=== PATIENT | male | born 1945 | race Caucasian/White ===

== ENCOUNTER → 2016-06-01 | Outpatient (CLI) | payer BC ==
[~2016-06-01] MED LIST: ASPCH81X PO; HYDR25TA4 PO; LISI-725 PO; METFTAB2 PO; METO25TA3 PO
[2016-06-01 17:05] LABS: BLOOD UREA NITROGEN 14 mg/dl (7-18); BUN/CREATININE RATIO 13.9 (10-20); CALCIUM 9.1 mg/dl (8.5-10.1); CARBON DIOXIDE 32 mmol/L (21-32); CHLORIDE 102 mmol/L (98-107); GLUCOSE 121 mg/dl (70-99); POTASSIUM 3.6 mmol/L (3.5-5.1); SODIUM 143 mmol/L (136-145)
== END | disposition home or self-care (01) ==
LOC: C.LABBC 13:28
PROVIDERS: ATTEND Internal Medicine Interventional Cardiology
DX: I10 Essential (primary) hypertension (principal)

== ENCOUNTER 2016-09-03 13:14 | Inpatient (IN) | payer BC, OTHER ==
[~2016-09-03] VITALS: Ht 182.9 cm; Wt 98.0 kg
[2016-09-03] MEDS ORDERED: SODIUM CHLORIDE 0.9% 1000ML 1,000 ML IV STA (14:30)
[2016-09-03 14:40] LABS: BASO % 0.1 %; BASO ABS # 0.01 K/uL (0-0.2); COMPLETE YES; EOS % 2.4 %; IG% 0.1 %; LYMPH % 19.4 %; LYMPH ABS # 1.47 K/uL (1.2-3.4); MEAN CELL VOLUME 81.7 fL (80-100); MEAN CORPUSCULAR HEMOGLOBIN 28.6 pg (25-34); MEAN PLATELET VOLUME 9.2 fL (7.4-10.4); MONO % 7.7 %; NEUT % 70.3 %; PLATELET COUNT 201 K/uL (130-400); RED BLOOD COUNT 5.14 M/uL (4.7-6.1); WHITE BLOOD COUNT 7.58 K/uL (4.8-10.8)
--- NOTE | 2016-09-03 14:49 | DIAGNOSTIC IMAGING REPORT ---
CHEST ONE VIEW PORTABLE CLINICAL HISTORY: HYPOTENSION dyspnea COMPARISON STUDY: 11/12/2011 FINDINGS: Prior median sternotomy. Diaphragms smooth. Lungs are clear. IMPRESSION: No acute process. Electronically signed by: Kameron Michelle M.D. 09/03/2016 2:46 PM Dictated Date/Time: 09/03/2016 2:46 PM
[2016-09-03 14:59] LABS: ALT/SGPT 16 U/L (12-78); AST/SGOT 13 U/L (15-37); BLOOD UREA NITROGEN 14 mg/dl (7-18); BUN/CREATININE RATIO 8.7 (10-20); CALCIUM 8.4 mg/dl (8.5-10.1); CARBON DIOXIDE 31 mmol/L (21-32); CHLORIDE 104 mmol/L (98-107); GLUCOSE 116 mg/dl (70-99); POTASSIUM 3.8 mmol/L (3.5-5.1); SODIUM 141 mmol/L (136-145)
--- NOTE | 2016-09-03 15:01 | EMERGENCY ROOM VISIT NOTE ---
ED Visit Note First contact with patient: 14:07 I did evaluate and examine this patient myself. I did guide management for the patient. I agree with the PA's assessment as discussed. Please see the PAs dictation for further details. I did independently review the 12-lead EKG, chest x-ray and blood work. The patient is presenting with an episode of hypotension at home. He has orthostatic hypotension here. He denies any pain anywhere. He states he has had no chest discomfort or shortness of breath. He is feeling better at this time. His creatinine is 1.6. He was given IV fluids.
[2016-09-03 15:09] LABS: ALB/GLOB RATIO 1.2 (0.9-2); ALKALINE PHOSPHATASE 60 U/L (45-117); CKMB/CK RATIO 0.7 (0-3.0)
--- NOTE | 2016-09-03 16:21 | EMERGENCY ROOM VISIT NOTE ---
History First contact with patient: 14:07 Chief Complaint: HYPOTENSION Stated Complaint: LOW BLOOD PRESSURE, NAUSEA, FAINTNESS History of Present Illness Patient is a 71-year-old white male with past medical history significant for metabolic syndrome and coronary artery disease states status post CABG 1 who presents emergency department for evaluation of an episode of hypotension earlier today. Patient relates that over the last couple of days he has felt fatigued and had some intermittent dizzy spells that were not particularly worrisome to him. He thought that he might be getting sick. He states that he felt well this morning, had a normal breakfast and took his normal morning medications including Glucophage, carvedilol and lisinopril. About 2 hours prior to coming to the emergency Department patient states he was standing at his work bench when he began to feel weak, dizzy, sweaty and felt like he could not stand. He was able to get himself up to his bedroom where he laid down. He checked his blood pressure and it was noted to be 66/47. He did not check his blood sugar. He states that his symptoms lasted him about 20 minutes. He called his doctor and was referred to the emergency department. He denies that he lost consciousness. There was no associated chest pain, palpitations or shortness of breath. No headache, facial droop, slurring of speech or focal extremity weakness. He was able to get himself out of the house and into the car without difficulty. He still feels "spacey." He denies any changes in his medications recently. No abdominal pain, nausea, vomiting, diarrhea, melena or hematochezia. No urinary symptoms. He has never had symptoms similar to this previously. Review of Systems Review of systems as per HPI. All other systems reviewed were negative. 10 systems reviewed. Past Medical/Surgical History Medical Problems: (1) Coronary Atherosclerosis Of [place] Coronary Vessel (2) Dysmetabolic Syndrome X (3) Hyperlipidemia, Unspecified (4) Hypertension Nos Surgical Problems: (1) Aortocoronary Bypass Electronic medical records are reviewed and summarized as above/below. See Problem List. Social History Smoking Status: Former Smoker Marital Status: Housing Status: lives with significant other Occupation Status: retired Current/Historical Medications Scheduled Aspirin (Aspirin Chewable), 81 MG PO DAILY Hydrochlorothiazide (Hctz), 1 TAB PO DAILY Lisinopril (Zestril), 20 MG PO DAILY Metformin Ext Rel (Glucophage Ext Rel), 750 MG PO BIDM Allergies Coded Allergies: Penicillin G (Verified Allergy, Mild, RASH, 09/03/16) Sulfa Antibiotics (Verified Allergy, Unknown, GI SYMPTOMS, 09/03/16) Physical Exam Vital Signs Date Time Temp Pulse Resp B/P Pulse Ox O2 Delivery O2 Flow Rate FiO2 09/03/16 18:10 52 18 125/70 99 Room Air 09/03/16 16:14 52 16 134/97 99 Room Air 09/03/16 15:17 65 18 117/65 98 Room Air 09/03/16 13:49 54 09/03/16 13:44 60 112/54 65 108/58 72 102/59 09/03/16 13:29 36.2 66 18 96/61 98 Room Air Physical Exam CONSTITUTIONAL: Patient is a well-appearing 71-year-old white male who is awake and alert and in no acute distress. Blood pressure in triage 96/61. Heart rate during examination was in the mid to low 50s, and on subsequent reevaluation was noted to be in the upper 40s. EYES: Pupils equal, round, reactive to light and accommodation. EOMs intact without nystagmus. Sclera are anicteric. ENT: Tympanic membranes intact, with normal landmarks. External canals are clear. Oral and nasopharynx are clear. Mucous membranes are moist, no lesions , tongue and gums appear normal. NECK: No bruits auscultated. Supple without lymphadenopathy. No thyromegaly. No meningeal signs. Full active range of motion without discomfort. CARDIOVASCULAR: Well-healed sternotomy scar. Regular rate and rhythm. No carotid bruits auscultated. No JVD. Peripheral pulses easy to palpable. RESPIRATORY: Breath sounds equal and clear to auscultation without wheezes, rales, or rhonchi heard. Full and equal chest expansion without accessory muscle use or retractions. GI: Bowel sounds are present. Abdomen is soft, nontender, nondistended. No organomegaly. No pulsatile masses. No guarding or rebound. MUSCULOSKELETAL: Full range of motion of extremities x 4 with good strength. No cyanosis, edema, joint tenderness or swelling. No deformity. INTEGUMENTARY: No lesions or rash, normal skin turgor. NEUROLOGICAL: Alert, oriented, and cooperative. Cranial nerves, sensation and strength grossly intact. Pupils round, equal, and react to light, EOMs are full. LYMPH: No lymphadenopathy. Medical Decision & Procedures ER Provider Diagnostic Interpretation: CHEST ONE VIEW PORTABLE CLINICAL HISTORY: HYPOTENSION dyspnea COMPARISON STUDY: 11/12/2011 FINDINGS: Prior median sternotomy. Diaphragms smooth. Lungs are clear. IMPRESSION: No acute process. Laboratory Results 09/03/16 13:00 Red Blood Count 5.14, Mean Corpuscular Volume 81.7, Mean Corpuscular Hemoglobin 28.6, Mean Corpuscular Hemoglobin Concent 35.0, Mean Platelet Volume 9.2, Neutrophils (%) (Auto) 70.3, Lymphocytes (%) (Auto) 19.4, Monocytes (%) (Auto) 7.7, Eosinophils (%) (Auto) 2.4, Basophils (%) (Auto) 0.1, Neutrophils # (Auto) 5.33, Lymphocytes # (Auto) 1.47, Monocytes # (Auto) 0.58, Eosinophils # (Auto) 0.18, Basophils # (Auto) 0.01 09/03/16 13:00 Test 09/03/16 13:00 White Blood Count 7.58 K/uL (4.8-10.8) Red Blood Count 5.14 M/uL (4.7-6.1) Hemoglobin 14.7 g/dL (14.0-18.0) Hematocrit 42.0 % (42-52) Mean Corpuscular Volume 81.7 fL (80-100) Mean Corpuscular Hemoglobin 28.6 pg (25-34) Mean Corpuscular Hemoglobin Concent 35.0 g/dl (32-36) Platelet Count 201 K/uL (130-400) Mean Platelet Volume 9.2 fL (7.4-10.4) Neutrophils (%) (Auto) 70.3 % Lymphocytes (%) (Auto) 19.4 % Monocytes (%) (Auto) 7.7 % Eosinophils (%) (Auto) 2.4 % Basophils (%) (Auto) 0.1 % Neutrophils # (Auto) 5.33 K/uL (1.4-6.5) Lymphocytes # (Auto) 1.47 K/uL (1.2-3.4) Monocytes # (Auto) 0.58 K/uL (0.11-0.59) Eosinophils # (Auto) 0.18 K/uL (0-0.5) Basophils # (Auto) 0.01 K/uL (0-0.2) RDW Standard Deviation 38.1 fL (36.4-46.3) RDW Coefficient of Variation 12.7 % (11.5-14.5) Immature Granulocyte % (Auto) 0.1 % Immature Granulocyte # (Auto) 0.01 K/uL (0.00-0.02) Anion Gap 6.0 mmol/L (3-11) Est Creatinine Clear Calc Drug Dose 53.0 ml/min Estimated GFR () 50.2 Estimated GFR (Non- 43.3 BUN/Creatinine Ratio 8.7 (10-20) Calcium Level 8.4 mg/dl (8.5-10.1) Total Bilirubin 0.8 mg/dl (0.2-1) Aspartate Amino Transf (AST/SGOT) 13 U/L (15-37) Alanine Aminotransferase (ALT/SGPT) 16 U/L (12-78) Alkaline Phosphatase 60 U/L (45-117) Total Creatine Kinase 133 U/L (39-308) Creatine Kinase MB 0.9 ng/ml (0.5-3.6) Creatine Kinase MB Ratio 0.7 (0-3.0) Troponin I < 0.015 ng/ml (0-0.045) Total Protein 7.0 gm/dl (6.4-8.2) Albumin 3.8 gm/dl (3.4-5.0) Globulin 3.2 gm/dl (2.5-4.0) Albumin/Globulin Ratio 1.2 (0.9-2) Thyroid Stimulating Hormone (TSH) 2.460 uIu/ml (0.300-4.500) Medications Administered Medications (Trade) Dose Ordered Sig/Mona Route Start Time Stop Time Status Last Admin Dose Admin Sodium Chloride (Nss 1000ml) 1,000 ml @ 999 mls/hr Q1H1M STAT IV 09/03/16 14:30 09/03/16 15:30 DC 09/03/16 14:30 999 MLS/HR ECG Indication: weakness Rate (beats per minute): 55 Rhythm: sinus bradycardia Findings: no acute ischemic change, no ectopy Change: Sinus bradycardia has replaced normal sinus rhythm ED Course The patient was seen and assessed as above. His old records were reviewed. IV access was obtained and he was hydrated with a liter bolus of normal saline solution. He was also given oral fluids. Orthostatic vital signs were not indicative of orthostasis and the patient was not symptomatic with position changes. EKG was performed and was as noted above. Chest x-ray was obtained and was unremarkable. Laboratory studies were performed including CBC with differential, CMP, TSH and cardiac enzymes. Patient's white count was not elevated. He was not anemic. There were no gross electrolyte imbalances which required correction. Creatinine slightly elevated at 1.6, which does appear to be an increase from his baseline. Liver functions are not elevated. Cardiac enzymes are negative 1. TSH is indicative of a euthyroid state. The patient was reassessed frequently. He did report that he felt better with the IV fluids, but he was noted to be persistently bradycardic with heart rate in the 50s, occasionally was noted at 49 beats per minute. It is unclear whether this is a significant deviation from his baseline. Blood pressure remains stable. All laboratory and diagnostic imaging studies were reviewed with the patient and his as well as attending physician, who also independently evaluated the patient. Given his cardiac history, it was felt that he would benefit from further care and evaluation in the hospital. Patient was discussed with the [facility] service for further care and management. Differential includes acute coronary syndrome, arrhythmia, seizure disorder, medication side effect, TIA/CVA, orthostasis, dehydration, electrolyte abnormalities, anemia, hypoglycemia, among others.. Medical Decision See ED course. Impression Primary Impression: Hypotension Additional Impression: Bradycardia Departure Information Referrals Andrea Pereira D.O.Int.Med. (PCP) Patient Instructions [facility] Problem Qualifiers
[2016-09-03] MEDS ORDERED: ACETAMINOPHEN 325 MG TAB PO PRN (18:30)
[2016-09-03] MEDS ORDERED: ZOLPIDEM TARTRATE 5 MG TAB PO PRN (18:30)
[2016-09-03] MEDS ORDERED: GLUCOSE 10 TABS/TUBE PO PRN (18:45)
[2016-09-03] MEDS ORDERED: DEXTROSE 50% 50 ML SYR IV PRN (18:45)
[2016-09-03] MEDS ORDERED: GLUCAGON FOR INJ 1 MG VIAL SQ PRN (18:45)
[2016-09-03] MEDS ORDERED: ONDANSETRON INJ 2 MG/ML 2 ML VIAL IV PRN (18:45)
[2016-09-03] MEDS ORDERED: GLUCOSE 40% GEL 15 GM TUBE PO PRN (18:45)
[2016-09-03 19:00] VITALS: Ht 182.9 cm; Wt 98.0 kg
[2016-09-03 19:54] VITALS: BP 139/59; PULSE 57; TEMP 36.3; O2SAT 97
[2016-09-03] MEDS: INSULIN ASPART 100 UNITS/ML 3 ML PEN SC SCH (20:20)
[2016-09-03] MEDS: NSS + 20MEQ KCL 1000ML 1,000 ML IV SCH (20:20)
--- NOTE | 2016-09-03 20:50 | History and Physical ---
History & Physical Date & Time of Service: Sep 03, 2016 at 20:49 Chief Complaint: Bradycardia, Hypotension Primary Care Physician: Andrea Pereira D.O.Int.Med. History of Present Illness Source: patient The patient is a 71-year-old white male who reports a few days of fatigue and intermittent dizzy spells, and then developed hypotension today, which prompted a visit to the emergency department. He breakfast this morning, and while standing at his work then she began to feel weak, dizzy and sweaty like he was going to pass out. He was able to get to his bedroom, where he checked his blood pressure and found to be 66/47. He called his doctor at this time, and was advised to go to the emergency department. He did not have any associated chest pain, palpitations or shortness of breath. He denies any change in his usual activity pattern. Upon arrival in emergency department he reports he still felt a bit spacey, but this improved during the time he was there, in particular after getting IV fluids. Past Medical/Surgical History Medical Problems: (1) Coronary Atherosclerosis Of [place] Coronary Vessel Status: Chronic (2) Dysmetabolic Syndrome X Status: Chronic (3) Hyperlipidemia, Unspecified Status: Chronic (4) Hypertension Nos Status: Chronic Surgical Problems: (1) Aortocoronary Bypass Status: Chronic Social History Smoking Status: Former Smoker Smokeless Tobacco Use: No Alcohol Use: none Drug Use: none Marital Status: Housing status: lives with family Occupational Status: retired Multi-Drug Resistant Organisms History of MDRO: No Allergies Coded Allergies: Penicillin G (Verified Allergy, Mild, RASH, 09/03/16) Sulfa Antibiotics (Verified Allergy, Unknown, GI SYMPTOMS, 09/03/16) Home Medications Scheduled Aspirin (Aspirin Chewable), 81 MG PO DAILY Hydrochlorothiazide (Hctz), 1 TAB PO DAILY Lisinopril (Zestril), 20 MG PO DAILY Metformin Ext Rel (Glucophage Ext Rel), 750 MG PO BIDM Review of Systems The patient denies chest pain, palpitations, shortness of breath, cough, lower extremity swelling, vision change, hearing change, sore throat, fevers, chills, sweats, weight change, nausea, vomiting, abdominal pain, pelvic pain, blood in urine or stool, dysuria, urinary frequency or urgency, headache, memory loss, rash, abnormal bruising or bleeding, imbalance, focal weakness, arthralgias or myalgias, back or neck pain, night sweats, or allergy symptoms. The review of systems is otherwise negative other than for that already noted above, and at least 10 systems have been reviewed. Physical Exam Vital Signs Date Time Temp Pulse Resp B/P Pulse Ox O2 Delivery O2 Flow Rate FiO2 09/03/16 19:54 36.3 57 139/59 97 Room Air 09/03/16 18:10 52 18 125/70 99 Room Air 09/03/16 16:14 52 16 134/97 99 Room Air 09/03/16 15:17 65 18 117/65 98 Room Air 09/03/16 13:49 54 09/03/16 13:44 60 112/54 65 108/58 72 102/59 09/03/16 13:29 36.2 66 18 96/61 98 Room Air The patient is awake, well-developed and adequately nourished, alert and oriented 3, normocephalic and atraumatic, lying in bed and in no acute distress. HEENT--PERRL, EOMI, mucous membranes and oropharynx dry. Neck--supple, no JVD or bruits, thyroid normal, trachea midline, no adenopathy. Heart--bradycardic, no murmurs, rubs or gallops. Lungs--clear bilaterally with good air movement, no respiratory distress, no accessory muscle use. Abdomen--normal bowel sounds and soft, nontender and nondistended, no hernias or masses, no organomegaly. Extremities--no cyanosis, clubbing or edema. There are good distal pulses b/l. Dermatologic--normal skin turgor, normal color, warm and dry, no abnormal lymph nodes, no rash. Neurologic--cranial nerves II through XII grossly intact, motor and sensory examination normal. Rheumatologic--normal range of motion, nontender, muscles and joints. Psychiatric--normal affect. Diagnostics Laboratory Results Results Past 24 Hours Test 09/03/16 13:00 09/03/16 20:14 Range/Units White Blood Count 7.58 4.8-10.8 K/uL Red Blood Count 5.14 4.7-6.1 M/uL Hemoglobin 14.7 14.0-18.0 g/dL Hematocrit 42.0 42-52 % Mean Corpuscular Volume 81.7 80-100 fL Mean Corpuscular Hemoglobin 28.6 25-34 pg Mean Corpuscular Hemoglobin Concent 35.0 32-36 g/dl Platelet Count 201 130-400 K/uL Mean Platelet Volume 9.2 7.4-10.4 fL Neutrophils (%) (Auto) 70.3 % Lymphocytes (%) (Auto) 19.4 % Monocytes (%) (Auto) 7.7 % Eosinophils (%) (Auto) 2.4 % Basophils (%) (Auto) 0.1 % Neutrophils # (Auto) 5.33 1.4-6.5 K/uL Lymphocytes # (Auto) 1.47 1.2-3.4 K/uL Monocytes # (Auto) 0.58 0.11-0.59 K/uL Eosinophils # (Auto) 0.18 0-0.5 K/uL Basophils # (Auto) 0.01 0-0.2 K/uL RDW Standard Deviation 38.1 36.4-46.3 fL RDW Coefficient of Variation 12.7 11.5-14.5 % Immature Granulocyte % (Auto) 0.1 % Immature Granulocyte # (Auto) 0.01 0.00-0.02 K/uL Sodium Level 141 136-145 mmol/L Potassium Level 3.8 3.5-5.1 mmol/L Chloride Level 104 98-107 mmol/L Carbon Dioxide Level 31 21-32 mmol/L Anion Gap 6.0 3-11 mmol/L Blood Urea Nitrogen 14 7-18 mg/dl Creatinine 1.60 0.60-1.40 mg/dl Est Creatinine Clear Calc Drug Dose 53.0 ml/min Estimated GFR () 50.2 Estimated GFR (Non- 43.3 BUN/Creatinine Ratio 8.7 10-20 Random Glucose 116 70-99 mg/dl Calcium Level 8.4 8.5-10.1 mg/dl Total Bilirubin 0.8 0.2-1 mg/dl Aspartate Amino Transf (AST/SGOT) 13 15-37 U/L Alanine Aminotransferase (ALT/SGPT) 16 12-78 U/L Alkaline Phosphatase 60 45-117 U/L Total Creatine Kinase 133 39-308 U/L Creatine Kinase MB 0.9 0.5-3.6 ng/ml Creatine Kinase MB Ratio 0.7 0-3.0 Troponin I < 0.015 0-0.045 ng/ml Total Protein 7.0 6.4-8.2 gm/dl Albumin 3.8 3.4-5.0 gm/dl Globulin 3.2 2.5-4.0 gm/dl Albumin/Globulin Ratio 1.2 0.9-2 Thyroid Stimulating Hormone (TSH) 2.460 0.300-4.500 uIu/ml Bedside Glucose 105 70-99 mg/dl Diagnostic Radiology Patient Name: ROBERT MEI Unit Number: [id number] Dictated: 09/03/[id number] Transcribed: 09/03/16 144 MS Printed Date/Time: [~ rep prt dt]/[~ rep prt tm] [~ rep ct labl] - [~ rep ct ivnm] [facility] [place] [address] Dictated: 09/03/[id number] Transcribed: 09/03/16 1446 MS Printed Date/Time: [~ rep prt dt]/[~ rep prt tm] [~ rep ct labl] - [~ rep ct ivnm] CHEST ONE VIEW PORTABLE CLINICAL HISTORY: HYPOTENSION dyspnea COMPARISON STUDY: 11/12/2011 FINDINGS: Prior median sternotomy. Diaphragms smooth. Lungs are clear. IMPRESSION: No acute process. Electronically signed by: Kameron Michelle M.D. 09/03/2016 2:46 PM Dictated Date/Time: 09/03/2016 2:46 PM The status of this report is Signed. Draft = Not yet reviewed or approved by Radiologist. Signed = Reviewed and approved by Radiologist. <AttendingPhy></AttendingPhy> <FamilyPhy>Andrea Pereira D.O.Int.Med.</ FamilyPhy> <PrimaryPhy>Andrea Pereira D.O.Int.Med.</PrimaryPhy> <UnitNumber> [id number]</UnitNumber> <VisitNumber>[id number]</VisitNumber> <PatientName> ROBERT MEI</PatientName> <DateOfBirth>1945</DateOfBirth> <Location>[facility]< /Location> <ServiceDate>09/03/16</ServiceDate> <MNE>ESINDI</MNE> <OrderingPhy> Shelly Mathews</OrderingPhy> <OrderingPhyMNE>f rep ord dr iglesias</ OrderingPhyMNE> <DictatingPhyMNE>f rep dict dr iglesias</DictatingPhyMNE> <CCListMNE> f rep ct mne</CCListMNE> <AdmittingPhyMNE>f pt admit dr iglesias</AdmittingPhyMNE> < AttendingPhyMNE>f pt attend dr iglesias</AttendingPhyMNE> <ConsultingPhyMNE>f pt consult dr iglesias</ConsultingPhyMNE> <FamilyPhyMNE>f pt fam dr iglesias</FamilyPhyMNE> <OtherPhyMNE>f pt other dr iglesias</OtherPhyMNE> < PrimaryPhyMNE>f pt prim care dr iglesias</PrimaryPhyMNE> <ReferringPhyMNE>f pt referring dr iglesias</ReferringPhyMNE> EKG EKG shows sinus bradycardia at 55 bpm, 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 Impression Assessment and Plan Near syncope/hypotension with dehydration/bradycardia/CAD/status post CABG/ hypertension history--the patient will be admitted to the telemetry unit for serial cardiac enzymes, cardiac rhythm monitoring and a 2-D echo cardiac exam with Dopplers. He appeared to have significant improvement of hypotension symptoms once he received IV fluids, however, he persisted to have an abnormally low heart rate in the mid 50s, about 10 bpm lower than average upon record review. We'll continue aspirin chewable 81 mg by mouth daily, lisinopril 20 mg by mouth daily, and hold HCTZ 25 mg by mouth daily. If his heart rate continues to be abnormally low, could consider a cardiology consult. The patient however, did deny any further symptoms once rehydrated, despite his heart rate being in the mid 50s. Metabolic syndrome--hold metformin extended release 750 mg by mouth twice a day with meals, and placement Accu-Cheks before meals and at bedtime with NovoLog coverage. Level of Care Telemetry Advanced Directives Existing Advance Directive: No Existing Living Will: No Existing Power of Precise Winder: No Resuscitation Status FULL RESUSCITATION VTE Prophylaxis VTE Risk Assessment Done? Y/N: Yes Risk Level: Moderate Given or contraindicated: SCD's Social Service Consult None Apply
[2016-09-04] VITALS (10 sets, daily range): BP systolic 107–188; BP diastolic 68–82; PULSE 52–77; TEMP 36.4–36.7; O2SAT 94–97
[2016-09-04 02:44] LABS: CKMB/CK RATIO 0.9 (0-3.0)
[2016-09-04] MEDS: NSS + 20MEQ KCL 1000ML 1,000 ML IV SCH (05:24)
[2016-09-04 06:04] LABS: BASO % 0.3 %; BASO ABS # 0.02 K/uL (0-0.2); COMPLETE YES; EOS % 2.7 %; HEMATOCRIT 37.4 % (42-52); IG% 0.2 %; LYMPH % 26.4 %; LYMPH ABS # 1.64 K/uL (1.2-3.4); MEAN CORPUSCULAR HEMOGLOBIN 28.9 pg (25-34); MEAN CORPUSCULAR HGB CONC 35.3 g/dl (32-36); NEUT % 61.4 %; PLATELET COUNT 148 K/uL (130-400); RED BLOOD COUNT 4.56 M/uL (4.7-6.1); WHITE BLOOD COUNT 6.21 K/uL (4.8-10.8)
[2016-09-04 06:30] LABS: BUN/CREATININE RATIO 10.4 (10-20); CALCIUM 8.1 mg/dl (8.5-10.1); CREATININE 1.1 mg/dl (0.60-1.40); MAGNESIUM 2.4 mg/dl (1.8-2.4); POTASSIUM 3.5 mmol/L (3.5-5.1)
[2016-09-04] MEDS: INSULIN ASPART 100 UNITS/ML 3 ML PEN SC SCH ×2 (08:32→11:42)
[2016-09-04] MEDS ORDERED: ASPIRIN 81 MG ECTAB PO SCH (09:00)
[2016-09-04] MEDS ORDERED: LISINOPRIL 20 MG TAB PO SCH (09:00)
[2016-09-04] MEDS ORDERED: PERFLUTREN LIPID MICROSPHERE (DEFINITY) IV ONE (09:48)
[2016-09-04 10:59] LABS: CKMB/CK RATIO 0.9 (0-3.0)
--- NOTE | 2016-09-04 13:03 | Discharge Instructions ---
Discharge Instructions Date of Service Sep 04, 2016. Admission Reason for Admission: Bradycardia, Hypotension Discharge Discharge Diagnosis / Problem: Near syncope/hypotension with dehydration, acute kidney failure resolved Discharge Goals Goal(s): Decrease discomfort, Improve function, Increase independence, Improve disease control, Improve nutritional status, Learn about illness, Diagnostic testing, Therapeutic intervention, Prevent Disease Progression, Specific goals Activity Recommendations Activity Limitations: resume your previous activity (fall precaution) . Instructions / Follow-Up Instructions / Follow-Up You have Near syncope/hypotension with dehydration, likely from decreased oral intake and on HCTZ diuretic It is resolved, but I recommend you continue plenty oral fluid intake, hold hydrochlorothiazide for now until seen by family doctor I would like you to check blood pressure 2 times a day and bring the number to your PCP in the follow-up visit Call to your family doctor if your systolic blood pressure more than 180, You have echocardiogram examination done you need to follow-up with primary care physician all your cardiology for the final results You have decreased heart rate which we called bradycardia, you need to report to PCP or call 911 if you feeling any dizziness or palpitation You have acute kidney failure resolved You need to follow up with slicing machine operator/tender Dr. Collins about bradycardia, outpatient Holter monitor if needed You have Metabolic syndrome, metformin was hold when you in the hospital , will recommend continue to hold until seen by PCP in 3-5 days because of acute kidney failure recent - you need to follow up with your primary care physician in 3-5 days, you should call to get appointment - - you need to follow up with your subspecialist in 2-3 week, is to call to get appointment - take medication as instructed, never overdose or any misuse, or take with alcohol, because misuse of medicine may cause organ damage or , call your primary care physician if have questions of medicaitons. - call your primary care physician OR go to local emergency room if has any fever/chill, chest pain, shortness of breathing, nausea/vomiting/abdominal pain , facial droop/slurry speech/local weakness, or if has any questions. - fall precaution - diet as instructed - you should understand that it is important to follow up the above instruction , and "not following the above instruction" may cause delayed or missed care of your medical conditions which may cause permanent organ damage and even . Current Hospital Diet Patient's current hospital diet: Diabetes Type 2 Diet, AHA Diet (Heart Healthy) , Vegetarian Diet Discharge Diet Recommended Diet: AHA Diet (Heart Healthy) Pending Studies Studies pending at discharge: no Medical Emergencies . Who to Call and When: Medical Emergencies: If at any time you feel your situation is an emergency, please call 911 immediately. . Non-Emergent Contact Non-Emergency issues call your: Primary Care Provider, [employer] . . "Provider Documentation" section prepared by Manpreet Mcfarland. VTE Core Measure Inpt VTE Proph given/why not?: SCD's
--- NOTE | 2016-09-04 13:05 | Discharge Summary ---
Discharge Summary Date of Service Sep 04, 2016. Discharge Summary Admission Date: Sep 03, 2016 at 18:30 Discharge Date: Sep 04, 2016 Discharge Disposition: Home Principal Diagnosis: Near syncope/hypotension with dehydration, likely from decreased oral intak Problems/Secondary Diagnoses: Acute kidney failure resolved Bradycardia asymptomatic (1) Aortocoronary Bypass Status: Chronic (2) Coronary Atherosclerosis Of [place] Coronary Vessel Status: Chronic (3) Dysmetabolic Syndrome X Status: Chronic (4) Hyperlipidemia, Unspecified Status: Chronic (5) Hypertension Nos Status: Chronic Procedures: Echo was done, no formal report yet Consultations: No Medication Reconciliation Continued Medications: Aspirin (Aspirin Chewable) 81 Mg Chew 81 MG PO DAILY Lisinopril (Zestril) 20 Mg Tab 20 MG PO DAILY, TAB Discontinued Medications: Hydrochlorothiazide (Hctz) 25 Mg Tab 1 TAB PO DAILY for 30 Days, #30 TAB 5 Refills Metformin Ext Rel (Glucophage Ext Rel) 750 Mg Tab 750 MG PO BIDM, TAB Discharge Exam Feeling great, out of bed to the rest room, no dizziness Review of Systems: Constitutional: No chills, No fatigue, No fever, No problem reported, No sweats, No weakness, No weight loss Eyes: No diplopia, No discharge, No eye pain, No problem reported, No redness, No worsening of vision ENT: No dental problems, No hearing loss, No nasal symptoms, No problem reported, No sore throat, No tinnitus, No trouble swallowing, No unusual epistaxis Respiratory: No cough, No dyspnea at rest, No dyspnea on exertion, No hemoptysis, No problem reported, No shortness of breath, No sputum, No wheezing Cardiovascular: No PND, No chest pain, No claudication, No edema, No orthopnea, No palpitations, No problem reported Abdomen: No GI bleeding, No constipation, No diarrhea, No nausea, No pain, No problem reported, No vomiting Musculoskeletal: No calf pain, No joint pain, No muscle pain, No problem reported, No swelling Genitourinary - Male: No dysuria, No hematuria, No impotence, No lesions, No penile discharge, No problem reported, No urinary frequency, No urinary hesitancy, No urinary incontinence, No urinary retention, No urinary urgency Psychiatric: No anhedonism, No anxiety, No depression symptoms, No insomnia , No problem reported, No substance abuse Endocrine: No excessive thirst, No excessive urination, No fatigue, No problem reported Hematologic / Lymphatic: No abnormal bleeding/bruising, No clotting problems , No night sweats, No problem reported, No swollen lymph nodes Integumentary: No bleeding, No color change, No itch, No new/changing skin lesions, No problem reported, No rash Physical Exam: General Appearance: WD/WN, no apparent distress Eyes: normal inspection, PERRL, EOMI ENT: normal ENT inspection, hearing grossly normal, pharynx normal Neck: supple, no adenopathy, thyroid normal Respiratory/Chest: chest non-tender, + decreased breath sounds Cardiovascular: regular rate, rhythm, no edema, no gallop, no JVD Abdomen / GI: normal bowel sounds, non tender, soft, no organomegaly, no pulsatile mass, normal rectal exam, occult blood negative Extremities: normal inspection, no calf tenderness, normal capillary refill , no pedal edema, normal range of motion Neurologic/Psychiatric: end frazer II-XII nml as tested, no motor/sensory deficits , alert, normal mood/affect, normal reflexes Skin: normal color, warm/dry Hospital Course 71-year-old white male admitted on 09/03/2016 because of a few days of fatigue and intermittent dizzy spells, and then developed hypotension on the day of admission Per report He breakfast on the morning of his admission, and while standing at his work then she began to feel weak, dizzy and sweaty like he was going to pass out. He was able to get to his bedroom, where he checked his blood pressure and found to be 66/47. He called his doctor at this time, and was advised to go to the emergency department. He did not have any associated chest pain, palpitations or shortness of breath. He denies any change in his usual activity pattern. Upon arrival in emergency department he reports he still felt a bit spacey, but this improved during the time he was there, in particular after getting IV fluids. Near syncope/hypotension with dehydration/bradycardia/CAD/status post CABG/ hypertension history Patient reportedly in recent days he has decreased oral intake, which possible affect are because dehydration, he is taking HCTZ as well which is diuretic I feel combined these tow factors together which caused his dehydration and acute kidney failure and syncope near episode, there was no arrhythmia identified in this hospital stay, He is still have some bradycardia, I don't believe bradycardia contribute to the dizziness, however need to be follow-up, acute kidney failure improved and resolved after IV hydration, Patient symptoms too. Patient was admitted to the telemetry unit for serial cardiac enzymes, each were totally negative cardiac rhythm monitoring were not remarkable 2-D echo cardiac exam with Dopplers, he was done no formal report yet because of possible reason of the poor by mouth intake, continued taking diuretic and resent acute kidney failure, I will continue hold HCTZ 25 mg upon discharge , PCP please adjust the blood pressure medication Because of bradycardia and near syncope episodes, an echo was done, PCP and ripshear operator please follow-up the results, Holter monitor if needed Patient reported he follow-up with a ripshear operator Dr. Collins as well, Dr. Eddy please follow-up Patient has Metabolic syndrome--performing was hold upon admission because of acute kidney failure , I will continue to hold hold metformin upon discharge The best for the patient to home will be continue overnight watching and discharge tomorrow, However he really want to go home tonight I ordered orthostatic bp and heart rate for now and at 5 PM, have him to up and walk, if continued doing well without any symptoms of dizziness or near syncope, go home. Discussed with patient about a care plan and discussed the risk of condition getting worse and need to coming back to the emergency known, he wants to take all the risk Instructions / Follow-Up You have Near syncope/hypotension with dehydration, likely from decreased oral intake and on HCTZ diuretic It is resolved, but I recommend you continue plenty oral fluid intake, hold hydrochlorothiazide for now until seen by family doctor I would like you to check blood pressure 2 times a day and bring the number to your PCP in the follow-up visit Call to your family doctor if your systolic blood pressure more than 180, You have echocardiogram examination done you need to follow-up with primary care physician all your cardiology for the final results You have decreased heart rate which we called bradycardia, you need to report to PCP or call 911 if you feeling any dizziness or palpitation You have acute kidney failure resolved You need to follow up with ripshear operator Dr. Collins about bradycardia, outpatient Holter monitor if needed You have Metabolic syndrome, metformin was hold when you in the hospital , will recommend continue to hold until seen by PCP in 3-5 days because of acute kidney failure recent - you need to follow up with your primary care physician in 3-5 days, you should call to get appointment - - you need to follow up with your subspecialist in 2-3 week, is to call to get appointment - take medication as instructed, never overdose or any misuse, or take with alcohol, because misuse of medicine may cause organ damage or , call your primary care physician if have questions of medicaitons. - call your primary care physician OR go to local emergency room if has any fever/chill, chest pain, shortness of breathing, nausea/vomiting/abdominal pain , facial droop/slurry speech/local weakness, or if has any questions. - fall precaution - diet as instructed - you should understand that it is important to follow up the above instruction , and "not following the above instruction" may cause delayed or missed care of your medical conditions which may cause permanent organ damage and even . This includes examination of the patient, discharge planning, medication reconciliation, and communication with other providers. Total Time Spent: Greater than 30 minutes Discharge Instructions Please refer to the electronic Patient Visit Report (Discharge Instructions) for additional information. Additional Copies To Andrea Pereira D.O.Int.Med.; Curtis Collins MD
--- NOTE | 2016-09-04 14:22 | ECHOCARDIOGRAM REPORT ---
*NOTICE TO RECEIVING CONSTITUTION PARTY AGENCY This information is strictly Confidential and protected under [place] law. [place] law prohibits you from making any further disclosure of this information unless further disclosure is expressly permitted by the written consent of the person to whom it pertains or is authorized by law. A general authorization for the release of medical or other information is not sufficient for this purpose. Hospital accepts no responsibility if the information is made available to any other person, INCLUDING THE PATIENT. Interpretation Summary * Name: ROBERT MEI Study Date: 09/04/2016 09:31 AM BP: 146/74 mmHg * Patient Location: [facility]\S\N282\[id number]\1 HR: 65 * : 1945 (M/d/yyyy) Gender: Male Height: 72 in * Age: 71 yrs Ethnicity: [place] Weight: 217 lb * Ordering Physician: Pepito Valencia * Referring Physician: Andrea Pereira D.O.Int.Med. * Performed By: Ivette Medina * * Reason For Study: BRADYCARDIA, HYPOTENSION * BSA: 2.2 m2 * Hyperdynamic left ventricular systolic function. * Mild concentric left ventricular hypertrophy. * Mild left atrial dilatation. * Trace mitral and tricuspid regurgitation. * -- Conclusions -- * Aortic valve sclerosis moderate, without significant aortic valvular stenosis. Procedure Details * A complete two-dimensional transthoracic echocardiogram was performed (2D, M-mode, Doppler and color flow Doppler). * A contrast injection of Definity was performed to improve assessment of LV function. * Contrast was injected into an intravenous site in the left arm. * One vial of Definity ultrasound contrast was diluted in normal saline to a total volume of 10 ml. A total of '3' ml of solution was administered during imaging. * Lot # [id number] of Definity utilized for procedure. * Expiration date 09/07. * The attending nurse who injected the contrast agent was SHAD FINN RN. Left Ventricle * The left ventricle is normal in size. * There is mild concentric left ventricular hypertrophy. * Ejection Fraction = >70 %. * The left ventricle is hyperdynamic. * No regional wall motion abnormalities noted. Right Ventricle * The right ventricle is not well visualized. * The right ventricle is grossly normal size. * The right ventricular systolic function is normal as assessed by tricuspid annular plane systolic excursion (TAPSE) (normal >1.5 cm). Atria * The left atrium is mildly dilated. * Right atrial size is normal. Mitral Valve * The mitral valve is normal. * Mitral stenosis is absent. * There is trace mitral regurgitation. Tricuspid Valve * The tricuspid valve is not well visualized, but is grossly normal. * No significant tricuspid stenosis. * There is trace tricuspid regurgitation. * Right ventricular systolic pressure is normal. Aortic Valve * The aortic valve is trileaflet. * The aortic valve opens well. * Aortic valve sclerosis moderate, without significant aortic valvular stenosis. * No hemodynamically significant valvular aortic stenosis. * No aortic regurgitation is present. Pulmonic Valve * The pulmonic valve is not well visualized. * The pulmonary valve is inadequately visualized, but the Doppler data is adequate for interpretation. * There is no significant pulmonary regurgitation. Great Vessels * The aortic root is normal size. Pericardium/Pleural * There is no pericardial effusion. Great Vessels * Normal inferior vena cava diameter and respiratory variation suggests normal central venous pressure. MMode 2D Measurements and Calculations IVSd 1.2 cm IVSs 1.8 cm LVIDd 4.4 cm LVIDs 2.7 cm LVPWd 1.2 cm LVPWs 2.1 cm IVS/LVPW 1.0 FS 39.9 % EDV(Teich) 88.8 ml ESV(Teich) 26.0 ml EF(Teich) 70.8 % EDV(cubed) 86.6 ml ESV(cubed) 18.8 ml EF(cubed) 78.3 % % IVS thick 50.5 % % LVPW thick 84.0 % LV mass(C)d 186.4 grams LV mass(C)dI 84.5 grams/m\S\2 LV mass(C)s 221.0 grams LV mass(C)sI 100.2 grams/m\S\2 CO(Teich) 4.0 l/min CI(Teich) 1.8 l/min/m\S\2 SV(Teich) 62.9 ml SI(Teich) 28.5 ml/m\S\2 CO(cubed) 4.3 l/min CI(cubed) 1.9 l/min/m\S\2 SV(cubed) 67.8 ml SI(cubed) 30.8 ml/m\S\2 Ao root diam 3.8 cm Ao root area 11.2 cm\S\2 ACS 1.6 cm LA dimension 4.1 cm asc Aorta Diam 2.9 cm LA/Ao 1.1 LVOT diam 1.6 cm LVOT area 1.9 cm\S\2 LVAd ap4 40.8 cm\S\2 LVLd ap4 10.9 cm EDV(MOD-sp4) 127.0 ml LVAs ap4 17.6 cm\S\2 LVLs ap4 8.3 cm ESV(MOD-sp4) 33.0 ml EF(MOD-sp4) 74.0 % LVAd ap2 32.5 cm\S\2 LVLd ap2 10.0 cm EDV(MOD-sp2) 88.0 ml LVAs ap2 16.3 cm\S\2 LVLs ap2 8.6 cm ESV(MOD-sp2) 25.0 ml EF(MOD-sp2) 71.6 % CO(MOD-sp4) 5.9 l/min CI(MOD-sp4) 2.7 l/min/m\S\2 SV(MOD-sp4) 94.0 ml SI(MOD-sp4) 42.6 ml/m\S\2 CO(MOD-sp2) 4.0 l/min CI(MOD-sp2) 1.8 l/min/m\S\2 SV(MOD-sp2) 63.0 ml SI(MOD-sp2) 28.6 ml/m\S\2 Doppler Measurements and Calculations MV E max mary 63.7 cm/sec MV A max mary 56.0 cm/sec MV E/A 1.1 MV dec time 0.29 sec Ao V2 max 179.2 cm/sec Ao max PG 12.8 mmHg Ao max PG (full) -0.77 mmHg GILLIAN(V,A) 2.0 cm\S\2 GILLIAN(V,D) 2.0 cm\S\2 LV V1 max PG 13.6 mmHg LV V1 max 184.5 cm/sec MR max mary 382.8 cm/sec MR max PG 58.6 mmHg PA V2 max 78.0 cm/sec PA max PG 2.4 mmHg TR max mary 158.8 cm/sec
--- NOTE | 2016-09-04 16:42 | Progress Note ---
Subjective Date of Service: Sep 04, 2016. Subjective Pt evaluation today including: conversation w/ patient doing ok, but bp high Problem List Medical Problems: (1) Bradycardia Status: Acute (2) Coronary Atherosclerosis Of [place] Coronary Vessel Status: Chronic (3) Dysmetabolic Syndrome X Status: Chronic (4) Hyperlipidemia, Unspecified Status: Chronic (5) Hypertension Nos Status: Chronic (6) Hypotension Status: Acute Surgical Problems: (1) Aortocoronary Bypass Status: Chronic Review of Systems Constitutional: No chills, No fatigue, No fever, No problem reported, No sweats , No weakness, No weight loss Eyes: No diplopia, No discharge, No eye pain, No redness, No worsening of vision ENT: No dental problems, No hearing loss, No nasal symptoms, No sore throat, No tinnitus, No trouble swallowing, No unusual epistaxis Respiratory: No cough, No dyspnea at rest, No dyspnea on exertion, No hemoptysis, No shortness of breath, No sputum, No wheezing Cardiac: No PND, No chest pain, No claudication, No edema, No orthopnea, No palpitations Abdomen: No constipation, No diarrhea, No nausea, No pain, No vomiting Musculoskeletal: No calf pain, No joint pain, No muscle pain, No swelling Male : No dysuria, No hematuria, No incontinence, No nocturia more than once/ night, No slowing stream, No urinary frequency Neurologic: No balance problems, No memory loss, No numbness/tingling, No paralysis, No vertigo, No weakness Psychiatric: No anhedonism, No anxiety, No depression symptoms, No insomnia, No substance abuse Heme: No abnormal bleeding/bruising, No clotting problems, No night sweats, No swollen lymph nodes Endo: No excessive thirst, No excessive urination, No fatigue Skin: No bleeding, No color change, No itch, No new/changing skin lesions, No rash Objective Vital Signs Date Time Temp Pulse Resp B/P Pulse Ox O2 Delivery O2 Flow Rate FiO2 09/04/16 16:31 36.5 57 18 188/82 95 63 179/80 59 179/79 09/04/16 15:52 Room Air 09/04/16 15:44 36.4 62 18 97 Room Air 09/04/16 14:00 36.4 62 18 159/75 97 Room Air 157/77 176/72 09/04/16 12:00 96 Room Air 09/04/16 11:48 36.4 59 18 151/70 97 09/04/16 08:00 96 Room Air 09/04/16 07:28 36.5 77 18 107/68 96 Room Air 09/04/16 05:49 36.4 58 20 146/74 97 Room Air 09/04/16 04:01 Room Air 09/04/16 00:35 36.7 52 20 149/75 94 Room Air 09/04/16 00:00 Room Air 09/03/16 19:54 36.3 57 139/59 97 Room Air 09/03/16 19:00 Room Air 09/03/16 18:10 52 18 125/70 99 Room Air Physical Exam General Appearance: WD/WN, no apparent distress Eyes: normal inspection, PERRL, EOMI, sclerae normal ENT: normal ENT inspection, hearing grossly normal, pharynx normal Neck: supple, no adenopathy, thyroid normal, no JVD, no carotid bruits, trachea midline Respiratory/Chest: chest non-tender, lungs clear, normal breath sounds, no respiratory distress, no accessory muscle use Cardiovascular: regular rate, rhythm, no edema, no gallop, no JVD, no murmur Abdomen: normal bowel sounds, non tender, soft, no organomegaly, no pulsatile mass Extremities: normal range of motion, non-tender, normal inspection, no pedal edema, no calf tenderness, normal capillary refill, pelvis stable Neurologic/Psychiatric: media relations intern II-XII nml as tested, no motor/sensory deficits, alert, normal mood/affect, oriented x 3, + abnormal cerebellar tests Skin: normal color, warm/dry, no rash Lymphatic: no adenopathy Laboratory Results Last 24 Hours Test 09/03/16 20:14 09/04/16 02:08 09/04/16 05:43 09/04/16 07:37 Bedside Glucose 105 mg/dl 97 mg/dl Total Creatine Kinase 100 U/L Creatine Kinase MB 0.9 ng/ml Creatine Kinase MB Ratio 0.9 Troponin I < 0.015 ng/ml White Blood Count 6.21 K/uL Red Blood Count 4.56 M/uL Hemoglobin 13.2 g/dL Hematocrit 37.4 % Mean Corpuscular Volume 82.0 fL Mean Corpuscular Hemoglobin 28.9 pg Mean Corpuscular Hemoglobin Concent 35.3 g/dl Platelet Count 148 K/uL Mean Platelet Volume 9.0 fL Neutrophils (%) (Auto) 61.4 % Lymphocytes (%) (Auto) 26.4 % Monocytes (%) (Auto) 9.0 % Eosinophils (%) (Auto) 2.7 % Basophils (%) (Auto) 0.3 % Neutrophils # (Auto) 3.81 K/uL Lymphocytes # (Auto) 1.64 K/uL Monocytes # (Auto) 0.56 K/uL Eosinophils # (Auto) 0.17 K/uL Basophils # (Auto) 0.02 K/uL RDW Standard Deviation 38.4 fL RDW Coefficient of Variation 12.7 % Immature Granulocyte % (Auto) 0.2 % Immature Granulocyte # (Auto) 0.01 K/uL Sodium Level 143 mmol/L Potassium Level 3.5 mmol/L Chloride Level 107 mmol/L Carbon Dioxide Level 30 mmol/L Anion Gap 6.0 mmol/L Blood Urea Nitrogen 11 mg/dl Creatinine 1.10 mg/dl Est Creatinine Clear Calc Drug Dose 76.9 ml/min Estimated GFR () 79.0 Estimated GFR (Non- 68.1 BUN/Creatinine Ratio 10.4 Random Glucose 97 mg/dl Calcium Level 8.1 mg/dl Magnesium Level 2.4 mg/dl Test 09/04/16 10:20 09/04/16 11:34 09/04/16 16:18 Total Creatine Kinase 97 U/L Creatine Kinase MB 0.9 ng/ml Creatine Kinase MB Ratio 0.9 Troponin I < 0.015 ng/ml Bedside Glucose 127 mg/dl 93 mg/dl Assessment and Plan 71-year-old white male admitted on 09/03/2016 because of a few days of fatigue and intermittent dizzy spells, and then developed hypotension on the day of admission Per report He breakfast on the morning of his admission, and while standing at his work then she began to feel weak, dizzy and sweaty like he was going to pass out. He was able to get to his bedroom, where he checked his blood pressure and found to be 66/47. He called his doctor at this time, and was advised to go to the emergency department. He did not have any associated chest pain, palpitations or shortness of breath. He denies any change in his usual activity pattern. Upon arrival in emergency department he reports he still felt a bit spacey, but this improved during the time he was there, in particular after getting IV fluids. Near syncope/hypotension with dehydration/bradycardia/CAD/status post CABG/ hypertension history Patient reportedly in recent days he has decreased oral intake, which possible affect are because dehydration, he is taking HCTZ as well which is diuretic I feel combined these tow factors together which caused his dehydration and acute kidney failure and syncope near episode, there was no arrhythmia identified in this hospital stay, He is still have some bradycardia, I don't believe bradycardia contribute to the dizziness, however need to be follow-up, acute kidney failure improved and resolved after IV hydration, Patient symptoms too. Patient was admitted to the telemetry unit for serial cardiac enzymes, each were totally negative cardiac rhythm monitoring were not remarkable 2-D echo cardiac exam with Dopplers, he was done no formal report yet because of possible reason of the poor by mouth intake, continued taking diuretic and resent acute kidney failure, I will continue hold HCTZ 25 mg upon discharge , PCP please adjust the blood pressure medication Because of bradycardia and near syncope episodes, an echo was done, PCP and financial services intern please follow-up the results, Holter monitor if needed Patient reported he follow-up with a financial services intern Dr. Collins as well, Dr. Eddy please follow-up Patient has Metabolic syndrome--performing was hold upon admission because of acute kidney failure , I will continue to hold hold metformin upon discharge The best for the patient to home will be continue overnight watching and discharge tomorrow, However he really want to go home tonight I ordered orthostatic bp and heart rate for now and at 5 PM, have him to up and walk, if continued doing well without any symptoms of dizziness or near syncope, go home. Discussed with patient about a care plan and discussed the risk of condition getting worse and need to coming back to the emergency known, he wants to take all the risk DC hold b/c BP high>180 amlodipine 5 mg now and then daily hydralazine ordered as needed Continued [facility] stay due to: home environment unsafe for pt Discharge planning: home
[2016-09-04] MEDS ORDERED: HydrALAZINE HCL 20 MG/ML VIAL IV. PRN (16:45)
--- NOTE | 2016-09-04 16:54 | Discharge Instructions ---
Discharge Instructions Date of Service Sep 04, 2016. Admission Reason for Admission: Bradycardia, Hypotension Discharge Discharge Diagnosis / Problem: AMA Discharge Goals Goal(s): Decrease discomfort, Improve function Activity Recommendations Activity Limitations: as noted below . Instructions / Follow-Up Instructions / Follow-Up You have Near syncope/hypotension with dehydration, likely from decreased oral intake and on HCTZ diuretic Your blood pressure is now significant elevated, your medical conditions is not safe for me to release him, Against medical advice may cause permanent organ damage or even , you need to go back to emergency room or call your primary care physician if changed mind and wants to be treated. Current Hospital Diet Patient's current hospital diet: Diabetes Type 2 Diet, AHA Diet (Heart Healthy) , Vegetarian Diet Discharge Diet Recommended Diet: AHA Diet (Heart Healthy) Pending Studies Studies pending at discharge: no Medical Emergencies . Who to Call and When: Medical Emergencies: If at any time you feel your situation is an emergency, please call 911 immediately. . Non-Emergent Contact Non-Emergency issues call your: Primary Care Provider . . "Provider Documentation" section prepared by Manpreet Mcfarland. VTE Core Measure Inpt VTE Proph given/why not?: SCD's
[2016-09-04] MEDS ORDERED: AMLODIPINE BESYLATE 5 MG TAB PO ONE (17:00)
[2016-09-05] MEDS ORDERED: AMLODIPINE BESYLATE 5 MG TAB PO SCH (09:00)
== END 2016-09-04 17:30 | disposition left against medical advice (07) | DRG 315 ==
LOC: ENRESERVDT → ENRESERVTM → C.EDB 13:18 → C.MED 18:30
PROVIDERS: ADMIT Hospitalist; ATTEND Hospitalist
DX: I95.9 Hypotension, unspecified (principal); N17.9 Acute kidney failure, unspecified; E86.0 Dehydration; R00.1 Bradycardia, unspecified; R55 Syncope and collapse; I10 Essential (primary) hypertension; I25.10 Atherosclerotic heart disease of native coronary artery without angina pectoris; E78.5 Hyperlipidemia, unspecified; R63.8 Other symptoms and signs concerning food and fluid intake; E88.81 Metabolic syndrome and other insulin resistance; Z87.891 Personal history of nicotine dependence; Z95.1 Presence of aortocoronary bypass graft; Z79.82 Long term (current) use of aspirin; Z79.899 Other long term (current) drug therapy; Z79.84 Long term (current) use of oral hypoglycemic drugs; Z53.21 Procedure and treatment not carried out due to patient leaving prior to being seen by health care provider

== ENCOUNTER 2016-09-05 23:38 | Emergency (ER) | payer BC, OTHER ==
[~2016-09-05] VITALS: Ht 182.9 cm; Wt 99.4 kg
[~2016-09-05 23:38] MED LIST changes: -HYDR25TA4 PO; -METFTAB2 PO; -METO25TA3 PO
[2016-09-05 23:39] VITALS: TEMP 36.7; Ht 182.9 cm; Wt 99.4 kg
--- NOTE | 2016-09-05 23:55 | EMERGENCY ROOM VISIT NOTE ---
History Report prepared by Kareen: Kimberli Gorman Under the Supervision of: Dr. Manpreet Wu M.D. First contact with patient: 23:43 Chief Complaint: HYPERTENSION Stated Complaint: HIGH BLOOD PRESSURE History of Present Illness The patient is a 71 year old male who presents to the Emergency Room with complaints of persistent hypertension that began prior to arrival. The patient states that he was recently evaluated in the hospital for hypotension. He states that when he was discharged yesterday he was instructed to take his blood pressure twice per day. The patient states that this morning his blood pressure was 140 mmHg systolically. He states that before going to bed this evening his blood pressure was 200 mmHg systolically. The patient states that he had been told to stop taking his hydrochlorothiazide. He notes that he is additionally on Lisinopril and Carvedilol for his hypertension. The patient additionally notes that he was told to hold his Metformin. The patient denies any chest pain, shortness of breath, loss of consciousness, or abdominal pain. He states that he feels asymptomatic today. Source of History: patient Onset: prior to arrival Position: other (global) Symptom Intensity: 200 mmHg Quality: other (hypertension) Timing: other (persistent) Associated Symptoms: No LOC, No SOB, No abdominal pain, No chest pain Review of Systems See HPI for pertinent positives & negatives. A total of 10 systems reviewed and were otherwise negative. Past Medical & Surgical Medical Problems: (1) Coronary Atherosclerosis Of [place] Coronary Vessel (2) Dysmetabolic Syndrome X (3) Hyperlipidemia, Unspecified (4) Hypertension Nos Surgical Problems: (1) Aortocoronary Bypass Family History FH: lung disease Hypertension Social History Smoking Status: Former Smoker Drug Use: none Marital Status: Housing Status: lives with significant other Occupation Status: retired Current/Historical Medications Scheduled Aspirin (Aspirin Chewable), 81 MG PO DAILY Lisinopril (Zestril), 20 MG PO DAILY Allergies Coded Allergies: Penicillin G (Verified Allergy, Mild, RASH, 09/05/16) Sulfa Antibiotics (Verified Allergy, Unknown, GI SYMPTOMS, 09/05/16) Physical Exam Vital Signs Date Time Temp Pulse Resp B/P Pulse Ox O2 Delivery O2 Flow Rate FiO2 09/06/16 00:23 64 18 184/96 94 09/05/16 23:39 36.7 65 20 188/82 95 Room Air Physical Exam GENERAL: Patient is well appearing and in no acute distress. HEENT: No acute trauma, normocephalic atraumatic, mucous membranes moist, no nasal congestion, no scleral icterus. NECK: No stridor, no adenopathy, no meningismus, trachea is midline. LUNGS: No dyspnea. Clear to auscultation and equal bilaterally. No wheeze, no rhonchi. HEART: Regular rate and rhythm. No murmurs, rubs, gallops appreciated. ABDOMEN: Soft, nontender, bowel sounds positive, no masses appreciated, no peritonitis. BACK: No midline tenderness, no CVA tenderness EXTREMITIES: Normal motion all extremities, no cyanosis, no edema. NEUROLOGIC: Alert and oriented, no acute motor or sensory deficits, no focal weakness, cranial nerves grossly intact. SKIN: No rash, no jaundice, no diaphoresis. Medical Decision & Procedures Medications Administered Medications (Trade) Dose Ordered Sig/Mona Route Start Time Stop Time Status Last Admin Dose Admin Hydrochlorothiazide (Hydrochlorothiazide Tab) 25 mg NOW STAT PO 09/05/16 23:56 09/05/16 23:57 DC 09/06/16 00:14 25 MG ED Course 2347: The patient was evaluated in room B10. A complete history and physical exam was performed. 2356: Ordered Hydrochlorothiazide 25 mg PO. 0002: I reevaluated the patient and he is doing well. I discussed the treatment plan with him and he verbalized complete understanding and agreement. He is ready to go home. Medical Decision Differential: Benign Hypertension, Hypertensive Urgency/Emergency, Cardiovascular Pathology, Endocrine, Metabolic/Electrolyte, Renal Disease, Endorgan Damage, amongst other pathologies entertained. 71 yr old male with asymptomatic HTN. Currently off his HCTZ due to recent bout of hypotension following GI bug and dehydration. Most recent Cr wnl and patient without symptoms. Seems reasonable restarting his HCTZ. Discussed symptoms requiring RTED. Stable and feeling well. Planned PCP appointment in 2 days already. Impression Primary Impression: Hypertension Scribe Attestation The scribe's documentation has been prepared under my direction and personally reviewed by me in its entirety. I confirm that the note above accurately reflects all work, treatment, procedures, and medical decision making performed by me. Departure Information Dispostion Home / Self-Care Referrals Andrea Pereira D.O.[facility] (PCP) Forms HOME CARE DOCUMENTATION FORM, IMPORTANT VISIT INFORMATION, WORK / SCHOOL INSTRUCTIONS Patient Instructions My [facility] Additional Instructions Please restart your blood pressure medication. Please discuss having your kidney function rechecked later this week. Your blood pressure was elevated during this visit. This is quite common in many people who are being evaluated in the Emergency Department for many reasons. However, it is important that you have your Primary Care Provider recheck your blood pressure and discuss whether treatment will be needed. prison elevated blood pressure can lead to strokes, heart attacks, kidney failure amongst other medical issues. If you develop severe headaches, chest pain, weakness in arms or legs, or other concerning symptoms call 911. Problem Qualifiers Primary Impression: Hypertension Hypertension type: essential hypertension Qualified Codes: I10 - Essential ( primary) hypertension
[2016-09-05] MEDS ORDERED: HYDROCHLOROTHIAZIDE 25 MG TAB PO STA (23:56)
[2016-09-06 00:23] VITALS: BP 184/96; PULSE 64; O2SAT 94
== END 2016-09-06 00:24 | disposition home or self-care (01) ==
LOC: C.EDB 23:39
DX: I10 Essential (primary) hypertension (principal); I25.10 Atherosclerotic heart disease of native coronary artery without angina pectoris; E88.81 Metabolic syndrome and other insulin resistance; E78.5 Hyperlipidemia, unspecified; Z79.82 Long term (current) use of aspirin; Z82.49 Family history of ischemic heart disease and other diseases of the circulatory system; Z87.891 Personal history of nicotine dependence

== ENCOUNTER → 2016-09-27 | Outpatient (CLI) | payer BC ==
[2016-09-27 14:48] LABS: BLOOD UREA NITROGEN 11 mg/dl (7-18); BUN/CREATININE RATIO 10.3 (10-20); CALCIUM 8.7 mg/dl (8.5-10.1); CARBON DIOXIDE 30 mmol/L (21-32); CHLORIDE 106 mmol/L (98-107); GLUCOSE 134 mg/dl (70-99); POTASSIUM 3.8 mmol/L (3.5-5.1); SODIUM 144 mmol/L (136-145)
== END | disposition home or self-care (01) ==
LOC: C.LABBC 11:23
PROVIDERS: ATTEND Physician Assistant
DX: I10 Essential (primary) hypertension (principal)

== ENCOUNTER → 2017-02-25 | Outpatient (CLI) | payer BC | END | disposition home or self-care (01) | LOC: C.LABBC 11:28 | PROVIDERS: ATTEND Urology | DX: N40.0 Benign prostatic hyperplasia without lower urinary tract symptoms (principal); N52.9 Male erectile dysfunction, unspecified ==

== ENCOUNTER → 2017-05-10 | Outpatient (CLI) | payer BC ==
[2017-05-10 16:42] LABS: BASO % 0.2 %; BASO ABS # 0.02 K/uL (0-0.2); COMPLETE YES; EOS % 6.1 %; HEMATOCRIT 45.8 % (42-52); IG% 0.3 %; LYMPH ABS # 1.79 K/uL (1.2-3.4); MEAN CELL VOLUME 84.8 fL (80-100); MEAN CORPUSCULAR HEMOGLOBIN 29.1 pg (25-34); MEAN CORPUSCULAR HGB CONC 34.3 g/dl (32-36); MEAN PLATELET VOLUME 9.5 fL (7.4-10.4); MONO % 8.9 %; NEUT % 66.5 %; PLATELET COUNT 209 K/uL (130-400); WHITE BLOOD COUNT 9.96 K/uL (4.8-10.8)
[2017-05-10 17:21] LABS: ALT/SGPT 18 U/L (12-78); AST/SGOT 14 U/L (15-37); BLOOD UREA NITROGEN 10 mg/dl (7-18); BUN/CREATININE RATIO 9.8 (10-20); CALCIUM 8.7 mg/dl (8.5-10.1); CARBON DIOXIDE 29 mmol/L (21-32); CHLORIDE 105 mmol/L (98-107); CHOLESTEROL 106 mg/dl (0-200); CREATININE 1.04 mg/dl (0.60-1.40); GLUCOSE 95 mg/dl (70-99); POTASSIUM 3.8 mmol/L (3.5-5.1); SODIUM 140 mmol/L (136-145); TRIGLYCERIDES 114 mg/dl (0-150); VERY LOW DENSITY LIPOPROT CALC 23 mg/dl
[2017-05-10 17:29] LABS: ALB/GLOB RATIO 1.3 (0.9-2); ALKALINE PHOSPHATASE 76 U/L (45-117); CHOLESTEROL/HDL RATIO 2.3; HDL CHOLESTEROL 46 mg/dl; LDL CHOLESTEROL CALCULATED 37 mg/dl
[2017-05-11 07:49] LABS: ESTIMATED AVERAGE GLUCOSE 108 mg/dl; HA1C FLAG Normal (Normal)
== END | disposition home or self-care (01) ==
LOC: C.LAB1850 15:58
PROVIDERS: ATTEND Internal Medicine
DX: R73.03 Prediabetes (principal); I10 Essential (primary) hypertension; Z11.59 Encounter for screening for other viral diseases

== ENCOUNTER → 2018-01-04 | Outpatient (CLI) | payer BC ==
[2018-01-04 13:05] LABS: BASO % 0.3 %; BASO ABS # 0.02 K/uL (0-0.2); EOS % 5.4 %; EOS ABS # 0.35 K/uL (0-0.5); HEMATOCRIT 43.7 % (42-52); HEMOGLOBIN 14.7 g/dL (14.0-18.0); IG# 0.01 K/uL (0.00-0.02); LYMPH % 23.1 %; LYMPH ABS # 1.49 K/uL (1.2-3.4); MEAN CELL VOLUME 82.8 fL (80-100); MEAN CORPUSCULAR HEMOGLOBIN 27.8 pg (25-34); MEAN CORPUSCULAR HGB CONC 33.6 g/dl (32-36); MEAN PLATELET VOLUME 9.1 fL (7.4-10.4); MONO % 9.1 %; MONO ABS # 0.59 K/uL (0.11-0.59); NEUT % 61.9 %; NEUT ABS # 3.99 K/uL (1.4-6.5); PLATELET COUNT 187 K/uL (130-400); RED CELL DISTRIBUTION WIDTH CV 13.3 % (11.5-14.5); WHITE BLOOD COUNT 6.45 K/uL (4.8-10.8)
[2018-01-04 13:35] LABS: HEMOGLOBIN A1C 5.6 % (4.5-5.6)
[2018-01-04 13:47] LABS: ALBUMIN 3.7 gm/dl (3.4-5.0); ALKALINE PHOSPHATASE 65 U/L (45-117); ALT/SGPT 23 U/L (12-78); AST/SGOT 15 U/L (15-37); BLOOD UREA NITROGEN 11 mg/dl (7-18); CALCIUM 8.1 mg/dl (8.5-10.1); CARBON DIOXIDE 27 mmol/L (21-32); CHOLESTEROL 100 mg/dl (0-200); CREATININE 0.99 mg/dl (0.60-1.40); GLUCOSE 114 mg/dl (70-99); LDL CHOLESTEROL CALCULATED 38 mg/dl; POTASSIUM 3.5 mmol/L (3.5-5.1); SODIUM 141 mmol/L (136-145); TOTAL PROTEIN 6.8 gm/dl (6.4-8.2)
== END | disposition home or self-care (01) ==
LOC: C.LABBC 10:12
PROVIDERS: ATTEND Internal Medicine
DX: N40.0 Benign prostatic hyperplasia without lower urinary tract symptoms (principal); I10 Essential (primary) hypertension; I25.10 Atherosclerotic heart disease of native coronary artery without angina pectoris; R73.03 Prediabetes